=== PATIENT | female | born 1965 | race Caucasian/White ===

== ENCOUNTER 2017-11-12 16:26 | Inpatient (IN) | payer MEDICAID ==
[~2017-11-12] VITALS: Ht 160 cm; Wt 80.7 kg
[~2017-11-12 16:26] MED LIST: ASPI81EC98 PO; GLYB5TAB9 PO
[2017-11-12 16:37] VITALS: BP_SYST 161; BP_SYST 192; BP_DIAS 100; BP_DIAS 94
--- NOTE | 2017-11-12 16:46 | NUR ---
PT AMB TO [facility]
--- NOTE | 2017-11-12 16:47 | NUR ---
52/F BIB DAUGHTER C/O N/V & MID ABD PAIN & LBP 05/28 SINCE THIS AM. HX DM. SKIN IS PINK/WARM/DRY; AAOX4 WITH EVEN AND STEADY GAIT; LUNGS CLEAR BL. ABDOMEN SOFT; DENIES DIARRHEA.
--- NOTE | 2017-11-12 16:50 | NUR ---
PT AMB TO BED 12. Pt report given to RAMANDEEP OROZCO. Transfer of care at this time.
--- NOTE | 2017-11-12 17:04 | NUR ---
Pt presents to ED with n/v and abd pain x4 days. Pt states pain is worst x1 day with 10/10 pain. Pt in position of comfort with tears and gruarding against pain. Bowl sounds active in all quadrants. Pt states small amout of coffee ground type emesis. VSS at this time. ER MD aware. Continue to monitor.
[2017-11-12] MEDS ORDERED: MORPHINE SULFATE 4 MG/ML SYR IVP ONE (17:05)
[2017-11-12] MEDS ORDERED: NACL 0.9% 1,000 ML IV ONE (17:05)
[2017-11-12] MEDS ORDERED: ONDANSETRON 4 MG/2 ML VIAL IVP ONE (17:05)
[2017-11-12 17:36] LABS: APPEARANCE,URINE CLEAR (CLEAR); BILIRUBIN,URINE NEGATIVE (NEGATIVE); BLOOD, URINE NEGATIVE (NEGATIVE); COLOR,URINE YELLOW (YELLOW); LEUKOCYTE ESTERASE ,URINE NEGATIVE (NEGATIVE); NITRITE, URINE NEGATIVE (NEGATIVE); UGLUCOSE NEGATIVE (NEGATIVE)
--- NOTE | 2017-11-12 17:41 | NUR ---
US at bedside
[2017-11-12 17:52] LABS: BASOPHILS # (AUTO) 0.2 K/uL (0.00-0.22); BASOPHILS % (AUTO) 2.1 % (0.0-2.0); EOSINOPHILS # (AUTO) 0.1 K/uL (0-0.4); HEMATOCRIT 38.1 % (36-48); HEMOGLOBIN 12.5 g/dL (12.0-16.0); LYMPHOCYTES # (AUTO) 0.7 K/uL (2.5-16.5); MEAN CORPUSCULAR HEMOGLOBIN 27 pg (27-31); MEAN CORPUSCULAR HGB CONC 33 g/dL (33-37); MEAN CORPUSCULAR VOLUME 82.5 fL (80-94); MONOCYTES # (AUTO) 0.2 K/uL (0.8-1.0); MONOCYTES % (AUTO) 3.2 % (1.7-9.3); NEUTROPHILS # (AUTO) 6.5 K/uL (1.8-7.7); NEUTROPHILS % (AUTO) 84.7 % (42.2-75.2); PLATELET COUNT (AUTO) 214 K/uL (140-450); RED BLOOD CELL COUNT(AUTO) 4.61 MIL/uL (4.20-5.40); RED CELL DISTRIBUTION WIDTH 13.5 % (11.6-13.7); WHITE BLOOD COUNT (AUTO) 7.7 K/uL (4.8-10.8)
[2017-11-12 18:06] LABS: ANION GAP 11.8 (8-16); CARBON DIOXIDE 26.8 mmol/L (21-32); CREATININE 0.6 mg/dL (0.6-1.3); POTASSIUM 3.6 mmol/L (3.5-5.1)
[2017-11-12 18:11] LABS: ALBUMIN 4.1 g/dL (3.4-5.0); TOTAL BILIRUBIN 0.3 mg/dL (0.0-1.0)
--- NOTE | 2017-11-12 19:20 | NUR ---
RECEIVED PT FROM JANETTE OROZCO BP 147/76. PT'S DAUGHTER AT BEDSIDE.
[2017-11-12] MEDS: NACL 0.9% 1,000 ML IV SCH (20:21)
[2017-11-12] MEDS ORDERED: ONDANSETRON 4 MG/2 ML VIAL IM/IVP PRN (20:25)
[2017-11-12] MEDS ORDERED: KETOROLAC 30 MG/ML VIAL IVP PRN (20:25)
[2017-11-12] MEDS ORDERED: HYDROcodone/APAP 7.5/325 MG 1 TAB PO PRN (20:25)
[2017-11-12] MEDS ORDERED: DOCUSATE SODIUM 100 MG GELCAP PO PRN (20:25)
[2017-11-12] MEDS ORDERED: ACETAMINOPHEN 325 MG TAB PO PRN (20:25)
[2017-11-12] MEDS ORDERED: METF500T PO (20:35)
[2017-11-12] MEDS ORDERED: FERR-193 PO (20:35)
[2017-11-12] MEDS ORDERED: INSULIN LISPRO SLIDING SCALE 100 UNITS/ML VIAL SUBQ PRN (20:45)
[2017-11-12] MEDS ORDERED: DEXTROSE 50% 50 ML SYR IVP PRN (20:45)
--- NOTE | 2017-11-12 21:03 | NUR ---
DR. KIRK AT BEDSIDE TO ASSESS PT.
[2017-11-12 21:13] LABS: PROTHROMBIN TIME 10.5 secs (10.8-13.4)
[2017-11-12 21:14] LABS: BARBITURATE, URINE NEG. ng/ml (NEG <=200); BENZODIAZEPINE, URINE NEG. ng/mL (NEG <=200); CANNABINOID, URINE NEG. ng/mL (NEG <=50); COCAINE, URINE NEG. ng/mL (NEG <=300); OPIATE, URINE NEG. ng/mL (NEG <=2000); PHENCYCLIDINE SCREEN,URINE NEG. ng/mL (NEG <=25)
--- NOTE | 2017-11-12 21:15 | NUR ---
PT AWAKE, ALERT, AND ORIENTED. ON ROOM AIR, NO S/S OF RESPIRATORY DISTRESS NOTED. REPORT GIVEN TO ASHU SABILLON.
[2017-11-12 21:20] VITALS: BP 146/78
--- NOTE | 2017-11-12 21:20 | NUR ---
PATIENT ADMITTED TO THE UNIT FROM ER. PATIENT IS AWAKE, ALERT AND ORIENTED. AMBULATORY. NO SIGNS AND SYMPTOMS OF DISTRESS NOTED. PATIENT COMPLAINS OF 8/10 ABDOMINAL PAIN. WILL MEDICATE ORDERED. IV SITE NOTED ON RIGHT AC, ASYMPTOMATIC, INTACT, PATENT. SKIN IS INTACT. PATIENT IS ON ROOM AIR. PLAN OF CARE DISCUSSED WITH PATIENT. PATIENT VERBALIZED UNDERSTANDING. BED IN LOWEST POSITION, SIDE RAILS UP AND CALL LIGHT WITHIN REACH. WILL CONTINUE TO MONITOR.
[2017-11-12 21:30] LABS: CHOL/HDL RATIO 3.1 (1-4.5); THYROID STIMULATING HORMONE 0.53 uIU/mL (0.34-3.74)
[2017-11-12] MEDS: BLOOD GLUCOSE MONITORING 1 DEV DEV FS SCH (21:30)
--- NOTE | 2017-11-12 22:00 | NUR ---
PATIENT GETTING ULTRASOUND DONE
[2017-11-12] MEDS: MORPHINE SULFATE 2 MG/ML SYR IVP PRN (22:27)
--- NOTE | 2017-11-12 23:30 | NUR ---
CHECKED ON PATIENT. PATIENT IS ASLEEP. NO SIGNS AND SYMPTOMS OF DISTRESS NOTED. BREATHING EVEN AND UNLABORED. WILL CONTINUE TO MONITOR.
[2017-11-13] VITALS: BP 137/72
[2017-11-13] MEDS: MORPHINE SULFATE 2 MG/ML SYR IVP PRN (03:38)
[2017-11-13 04:00] VITALS: BP 146/74
[2017-11-13] MEDS: NACL 0.9% 1,000 ML IV SCH ×2 (04:41→15:01)
--- NOTE | 2017-11-13 05:00 | NUR ---
CHECKED ON PATIENT. PATIENT IS ASLEEP. NO SIGNS AND SYMPTOMS OF DISTRESS NOTED. BREATHING EVEN AND UNLABORED. WILL CONTINUE TO MONITOR.
[2017-11-13] MEDS: BLOOD GLUCOSE MONITORING 1 DEV DEV FS SCH ×2 (06:30→11:30)
[2017-11-13 07:02] LABS: BASOPHILS # (AUTO) 0.2 K/uL (0.00-0.22); BASOPHILS % (AUTO) 2.9 % (0.0-2.0); EOSINOPHILS # (AUTO) 0.1 K/uL (0-0.4); EOSINOPHILS % (AUTO) 2.2 % (0.0-4.0); HEMATOCRIT 33.7 % (36-48); HEMOGLOBIN 11.2 g/dL (12.0-16.0); LYMPHOCYTES # (AUTO) 1.7 K/uL (2.5-16.5); LYMPHOCYTES % (AUTO) 31.8 % (20.5-51.1); MEAN CORPUSCULAR HEMOGLOBIN 28 pg (27-31); MEAN CORPUSCULAR HGB CONC 33 g/dL (33-37); MEAN CORPUSCULAR VOLUME 82.9 fL (80-94); MONOCYTES # (AUTO) 0.4 K/uL (0.8-1.0); MONOCYTES % (AUTO) 7.3 % (1.7-9.3); NEUTROPHILS % (AUTO) 55.8 % (42.2-75.2); PLATELET COUNT (AUTO) 195 K/uL (140-450); RED BLOOD CELL COUNT(AUTO) 4.07 MIL/uL (4.20-5.40); RED CELL DISTRIBUTION WIDTH 13.4 % (11.6-13.7); WHITE BLOOD COUNT (AUTO) 5.4 K/uL (4.8-10.8)
--- NOTE | 2017-11-13 07:13 | NUR ---
RECEIVED REPORT FROM NIGHTSHIFT NURSE. PATIENT IS AWAKE AT THIS TIME. INTRODUCED MYSELF TO PATIENT AND UPDATED BOARD. PATIENT ALERT AND ORIENTED X4. PATIENT DOES NOT COMPLAIN OF PAIN AT THIS TIME. PATIENT HAS IV ACCESS ON RIGHT AC 20G RUNNING 120 ML/HR. PATIENT RESTING AND HAS CALL LIGHT WITHIN REACH. INSTRUCTED PATIENT TO CALL IF SHE NEEDS HELP WITH ANYTHING. PATIENT DEMONSTRATED THAT SHE KNOWS HOW TO USE CALL LIGHT. WILL CONTINUE TO MONITOR PATIENT.
--- NOTE | 2017-11-13 07:13 | NUR ---
PATIENT REPORT GIVEN TO MORNING NURSE FOR CONTINUITY OF CARE. PATIENT IS IN STABLE CONDITION
[2017-11-13 08:00] VITALS: BP 153/61
[2017-11-13 08:29] LABS: ANION GAP 11.7 (8-16); CARBON DIOXIDE 27.9 mmol/L (21-32); CREATININE 0.5 mg/dL (0.6-1.3); POTASSIUM 3.6 mmol/L (3.5-5.1)
[2017-11-13 08:37] LABS: T4 (THYROXINE) 5.7 ug/dL (4.5-12.0)
[2017-11-13] MEDS ORDERED: ECOTRIN 81 MG TABEC PO SCH (09:00)
[2017-11-13] MEDS ORDERED: FERROUS SULFATE 325 MG TABEC PO SCH (09:00)
--- NOTE | 2017-11-13 09:11 | NUR ---
REMOVED PATIENT'S TELEMETRY BOX. PATIENT DOWN-GRADED TO MED SURG PATIENT. PATIENT BREATHING WITHIN NORMAL LIMITS. WILL CONTINUE TO MONITOR PATIENT.
--- NOTE | 2017-11-13 11:01 | NUR ---
PATIENT LEFT FOR CT PROCEDURE. PATIENT LEFT IN STABLE CONDITION.
--- NOTE | 2017-11-13 11:09 | NUR ---
PATIENT HAS BEEN SCREENED AND CATEGORIZED MODERATE NUTRITION RISK. PATIENT WILL BE SEEN WITHIN 3-5 DAYS OF ADMISSION. 11/15/17 - 11/17/[address]
--- NOTE | 2017-11-13 11:19 | NUR ---
PATIENT ARRIVED BACK FROM CT DIAGNOSTIC VIA WHEELCHAIR. PATIENT IN STABLE CONDITION. WILL CONTINUE TO MONITOR PATIENT.
[2017-11-13] MEDS ORDERED: HYDROcodone/APAP 5/325 MG 1 TAB TAB PO PRN (11:30)
[2017-11-13] MEDS ORDERED: KETOROLAC 15 MG/ML VIAL IVP PRN (11:30)
[2017-11-13 12:00] VITALS: BP 131/60
--- NOTE | 2017-11-13 13:00 | NUR ---
PATIENT COMPLAINS OF NO PAIN AT THIS TIME. NO SIGNS OF RESPIRATORY DISTRESS. NO SIGNS OF RESPIRATORY DEPRESSION AT THIS TIME. WILL CONTINUE TO MONITOR PATIENT.
--- NOTE | 2017-11-13 14:15 | NUR ---
PATIENT FAMILY IS AT BEDSIDE. NO COMPLAINTS OF PAIN AT THIS TIME. WILL CONTINUE TO MONITOR PATIENT.
[2017-11-13 16:00] VITALS: BP 134/66
--- NOTE | 2017-11-13 16:10 | NUR ---
PATIENT HAS VISITORS AT BEDSIDE. NO COMPLAINTS OF PAIN. WILL CONTINUE TO MONITOR PATIENT.
[2017-11-13] MEDS ORDERED: ACET-9525 PO (16:18)
--- NOTE | 2017-11-13 17:42 | NUR ---
OFFERED PATIENT TO USE ENVIRONMENTAL SERVICES WORKER PHONE FOR DISCHARGE INSTRUCTIONS. PATIENT REFUSED AND DAUGHTER WAS ABLE TO TRANSLATE. PATIENT UNDERSTOOD ALL INSTRUCTIONS AND SIGNED ALL PAPERS. PATIENT AWARE OF PRESCRIPTIONS. DISCONTINUED PATIENT'S INTRAVENOUS LINE WITH CATHETER STILL INTACT. REMOVED PATIENT'S ID BANDS FROM BOTH ARMS. PATIENT SIGNED ALL PAPERS AND GATHERED ALL BELONGINGS. PATIENT AMBULATED OFF UNIT WITH TWO DAUGHTERS IN STABLE CONDITION.
== END 2017-11-13 17:42 | disposition home or self-care (01) ==
LOC: MED 16:26 → MTU 20:25
PROVIDERS: ADMIT Family Medicine Sports Medicine; ATTEND Family Medicine Sports Medicine
DX: K80.64 Calculus of gallbladder and bile duct with chronic cholecystitis without obstruction (principal); D68.59 Other primary thrombophilia; E11.65 Type 2 diabetes mellitus with hyperglycemia; N20.0 Calculus of kidney; E87.1 Hypo-osmolality and hyponatremia; D64.9 Anemia, unspecified; E66.9 Obesity, unspecified; Z98.891 History of uterine scar from previous surgery; Z68.31 Body mass index [BMI] 31.0-31.9, adult; Z79.82 Long term (current) use of aspirin; Z79.84 Long term (current) use of oral hypoglycemic drugs
CPT/HCPCS: 36415; 71045; 76705; 80048; 80053; 80305; 81003; 82150; 82948; 83036; 83690; 83735; 84100; 84436; 84443; 84479; 85025; 85610; 85730; 87081; 93005; 93925; 93970; 93976; 96374; 96375; 99285; J1885; J2270; J2405; J7030; Q0092

== ENCOUNTER 2020-04-16 12:13 | Emergency (ER) | payer MEDICAID ==
[~2020-04-16] VITALS: Ht 162.6 cm; Wt 68.0 kg
[~2020-04-16 12:13] MED LIST changes: +ACET-9525 PO; +FERR-15 PO; -GLYB5TAB9 PO; +METF500T PO
[2020-04-16 12:17] VITALS: BP 157/84
--- NOTE | 2020-04-16 12:20 | NUR ---
PT TAKEN TO BED 11.
[2020-04-16] MEDS ORDERED: ASPIRIN 325 MG TAB PO ONE (12:30)
[2020-04-16] MEDS ORDERED: LORazepam 2 MG/ML VIAL IVP ONE (12:30)
[2020-04-16] MEDS ORDERED: KETOROLAC 30 MG/ML VIAL IVP ONE (12:30)
--- NOTE | 2020-04-16 12:30 | NUR ---
54/F presents to ED with complaints of chest pain, back pain and SOB starting this morning. Pt denies cough. Denies fever or chills. Patient has pain with palpation to chest and upper back. Lungs clear bilaterally. 98% on room air. Speech normal, speaking in full clear sentences. Respirations even and unlabored. Chest rises and falls symmetrically. No signs of respiratory distress. Pt placed in a gown, on cardiac monitoring, pulse oximetry and blood pressure monitoring.
--- NOTE | 2020-04-16 12:36 | NUR ---
Dr. Cardenas is evaluating the patient at bedside.
--- NOTE | 2020-04-16 12:39 | NUR ---
X-Ray at bedside.
[2020-04-16 12:51] LABS: BASOPHILS % (AUTO) 0.6 % (0.0-2.0); EOSINOPHILS # (AUTO) 0.1 K/uL (0-0.4); EOSINOPHILS % (AUTO) 2.2 % (0.0-4.0); HEMATOCRIT 34.4 % (36-48); HEMOGLOBIN 11.5 g/dL (12.0-16.0); LYMPHOCYTES # (AUTO) 1.6 K/uL (2.5-16.5); LYMPHOCYTES % (AUTO) 28.1 % (20.5-51.1); MEAN CORPUSCULAR HEMOGLOBIN 29 pg (27-31); MEAN CORPUSCULAR HGB CONC 34 g/dL (33-37); MEAN CORPUSCULAR VOLUME 85.2 fL (80-94); MONOCYTES # (AUTO) 0.3 K/uL (0.8-1.0); MONOCYTES % (AUTO) 5.3 % (1.7-9.3); NEUTROPHILS # (AUTO) 3.7 K/uL (1.8-7.7); NEUTROPHILS % (AUTO) 63.8 % (42.2-75.2); PLATELET COUNT (AUTO) 221 K/uL (140-450); RED BLOOD CELL COUNT(AUTO) 4.03 MIL/uL (4.20-5.40); RED CELL DISTRIBUTION WIDTH 13.7 % (11.6-13.7); WHITE BLOOD COUNT (AUTO) 5.8 K/uL (4.8-10.8)
[2020-04-16 13:06] LABS: ALBUMIN 3.9 g/dL (3.4-5.0); ANION GAP 12.2 (8-16); CARBON DIOXIDE 25.4 mmol/L (21-32); CREATININE 0.6 mg/dL (0.6-1.3); POTASSIUM 3.6 mmol/L (3.5-5.1); TOTAL BILIRUBIN 0.3 mg/dL (0.0-1.0)
--- NOTE | 2020-04-16 13:08 | NUR ---
Pt report given to Antionette SABILLON. Transfer of care at this time.
[2020-04-16 13:20] LABS: CREATINE KINASE MB 1.1 ng/mL (0-3.6)
--- NOTE | 2020-04-16 14:56 | NUR ---
Patient discharged with v/s stable. Written and verbal after care instructions given and explained. Patient alert, oriented and verbalized understanding of instructions. Ambulatory with steady gait. All questions addressed prior to discharge. ID band removed. Patient advised to follow up with PMD. Rx of Ativan, and Naprosyn given. Patient educated on indication of medication including possible reaction and side effects. Opportunity to ask questions provided and answered.
[2020-04-16 14:57] VITALS: BP 102/69
== END 2020-04-16 14:56 | disposition home or self-care (01) ==
LOC: MED 12:13
DX: R06.00 Dyspnea, unspecified (principal); R07.89 Other chest pain; M54.9 Dorsalgia, unspecified; E11.9 Type 2 diabetes mellitus without complications; Z98.890 Other specified postprocedural states; Z79.84 Long term (current) use of oral hypoglycemic drugs; Z79.899 Other long term (current) drug therapy
CPT/HCPCS: 36415; 71045; 80053; 81025; 82550; 82553; 83690; 84484; 85025; 85379; 93005; 96374; 96375; 99285; J1885; J2060